=== PATIENT | female | born 1945 | race Caucasian/White ===

== ENCOUNTER 2017-01-13 01:27 | Inpatient (IN) | payer MEDICARE, OTHER ==
[~2017-01-13] VITALS: Ht 160 cm; Wt 72.6 kg
[2017-01-13 01:45] VITALS: BP 134/71
[2017-01-13] MEDS ORDERED: MAGNESIUM HYDROXIDE 30 ML UDC PO PRN (02:00)
[2017-01-13] MEDS ORDERED: MAG HYDROX/AL HYDROX/SIMETH 30 ML UDC PO PRN (02:00)
[2017-01-13] MEDS ORDERED: DIPH-530 PO (02:29)
[2017-01-13] MEDS ORDERED: AMLO2.5T PO (02:29)
[2017-01-13] MEDS ORDERED: TIMO5DRO4 EACHEYE (02:29)
[2017-01-13] MEDS ORDERED: ESCI20TA PO (02:29)
[2017-01-13] MEDS ORDERED: MORP15TA PO (02:29)
[2017-01-13] MEDS ORDERED: TAPE50TA5 PO (02:29)
[2017-01-13] MEDS ORDERED: LUBI8CAP PO (02:29)
[2017-01-13] MEDS ORDERED: PRAV20TA4 PO (02:29)
--- NOTE | 2017-01-13 05:24 | NUR ---
GPS/RN NOTE: ADMITTED DIRECTLY FROM [facility]. PATIENT ADMITTED ON 5150 FOR DTS. CAME TO THE UNIT AROUND 0145 WITH 2 MALE EMT STAFF. UPON FACE TO FACE PATIENT STATED THAT SHE WAS SUICIDAL WITH PLAN TO OVERDOSE WITH MEDICATIONS. PATIENT IS AWAKE, ALERT, ORIENTED X3, DEPRESSED, CALM, RESPIRATION EVEN, BREATHING PATTERN NON-LABORED, SHOWS NO S/S OF ANY RESPIRATORY DISTRESS OR PAIN. SKIN IS INTACT. PATIENT IS AMBULATORY, SELF CARE. PATIENT IS UNDER THE CARE OF DR. ROA AND UNDER THE MEDICAL CARE OF DR. DUQUE. BELONGINGS WERE INVENTORIED AND CHECKED FOR CONTRABAND, VALUABLES PUT IN TO SAFE. DR. DUQUE CAME TO THE UNIT LAST NIGHT, PREFERS TO DO THE MED RECON IN THE MORNING. MRSA SCREEN DONE. BED LOCKED AND PLACED ON LOWEST POSITION. WILL CONTINUE TO MONITOR Q 15 MINS. TO MAINTAIN SAFETY. 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
[2017-01-13 08:00] VITALS: BP 135/67
[2017-01-13] MEDS: LORAZEPAM 0.5 MG TABLET PO PRN ×2 (11:17→17:28)
[2017-01-13] MEDS: ACETAMINOPHEN 325 MG TABLET PO PRN ×2 (11:17→16:53)
--- NOTE | 2017-01-13 11:20 | NUR ---
GPS RN: PATIENT IS IN BED, APPEARS DEPRESSED, C/O ANXIETY AND ASKING FOR A MEDICATION TO HELP HER CALM DOWN. ALSO C/O LOWER BACK PAIN 01/11. ATIVAN 0.5MG AND TYLENOL 650MG ADMINISTERED PO ORDERED FOR ANXIETY AND PAIN RESPECTIVELY. VS STABLE. CALM AND SAFE ENVIRONMENT PROVIDED, ENCOURAGED TO VERBALIZE FEELINGS. CONTINUE TO MONITOR THE PATIENT.
[2017-01-13] MEDS: VENLAFAXINE XR 75 MG CAP.SR.24H PO SCH (13:41)
--- NOTE | 2017-01-13 15:00 | NUR ---
GPS RN: DR. OSEI NOTIFIED OVER THE PHONE AND IN PERSON TO RECONCILE PATIENT'S MEDICATIONS.
[2017-01-13 16:00] VITALS: BP 139/79
--- NOTE | 2017-01-13 16:54 | NUR ---
GPS RN: PATIENT C/O LOWER BACK PAIN 01/11, ASKING FOR TYLENOL. ADMINISTERED TYLENOL 650MG PO ORDERED. CONTINUE TO MONITOR.
[2017-01-13 20:00] VITALS: BP 152/74
[2017-01-13] MEDS: MORPHINE SULFATE IR 15 MG TABLET PO SCH (20:49)
--- NOTE | 2017-01-13 20:55 | NUR ---
GPS RN: PATIENT C/O LOWER BACK PAIN 02/11, ASKING FOR MSIR TAB. ADMINISTERED MSIR15 MG. WILL CONTINUE TO MONITOR.
[2017-01-13] MEDS: MIRTAZAPINE 15 MG TABLET PO SCH (21:17)
[2017-01-13] MEDS: ATORVASTATIN 10 MG TABLET PO SCH (21:17)
[2017-01-13] MEDS ORDERED: PRAVASTATIN SODIUM 20 MG TABLET PO SCH (22:00)
[2017-01-13] MEDS: TEMAZEPAM 7.5 MG CAPSULE PO PRN (22:18)
--- NOTE | 2017-01-14 06:12 | NUR ---
RN GPS NOTES PATIENT RESTING HER BED,EASILY GETS AGITED , NO ACUTE DISTRESS NOTED ,NO CHANGES IN STATUS. ALL NEEDS ATTENDED TO. WILL ENDORSE TO NEXT SHIFT FOR CONTINUITY CARE.
[2017-01-14 07:00] LABS: BASOPHILS % (AUTO) 0.6 % (0.0-2.0); EOSINOPHILS # (AUTO) 0.1 /CMM (0.0-0.7); HEMATOCRIT 42 % (33-45); HEMOGLOBIN 13.7 g/dL (11.5-14.8); LYMPHOCYTES # (AUTO) 2.2 /CMM (0.8-4.8); LYMPHOCYTES % (AUTO) 42.1 % (20.0-44.0); MEAN CORPUSCULAR HEMOGLOBIN 29 PG (26.0-33.0); MEAN CORPUSCULAR HGB CONC 33 g/dl (31.0-36.0); MEAN CORPUSCULAR VOLUME 87 fL (82-100); MONOCYTES # (AUTO) 0.5 /CMM (0.1-1.30); MONOCYTES % (AUTO) 8.7 % (2.0-12.0); NEUTROPHILS # (AUTO) 2.5 /CMM (1.8-8.9); NEUTROPHILS % (AUTO) 47.6 % (43.0-81.0); PLATELET COUNT (AUTO) 217 /CMM (150-450); RDW COEFFICIENT OF VARIATION 14.9 (11.5-15.0); WHITE BLOOD COUNT (AUTO) 5.3 K/uL (4.3-11.0)
[2017-01-14 07:05] LABS: ALBUMIN 3.8 g/dL (3.4-5.0); BILIRUBIN,TOTAL 0.8 mg/dL (0.2-1.0); CALCIUM, SERUM 8.9 mg/dL (8.5-10.1); CREATININE 1.1 mg/dL (0.6-1.3); POTASSIUM 3.3 mmol/L (3.5-5.1)
[2017-01-14 07:26] LABS: THYROID STIMULATING HORMONE 1.739 uIU/mL (0.358-3.74)
[2017-01-14 08:00] VITALS: BP 119/63
[2017-01-14] MEDS: AMLODIPINE BESYLATE 2.5 MG TABLET PO SCH (08:25)
[2017-01-14] MEDS: TIMOLOL 0.5% SOLN OPHTH 5 ML BOTTLE EACHEYE SCH (08:25)
[2017-01-14] MEDS: VENLAFAXINE XR 75 MG CAP.SR.24H PO SCH (08:25)
[2017-01-14] MEDS: LORAZEPAM 0.5 MG TABLET PO PRN ×2 (08:32→14:32)
[2017-01-14] MEDS: MORPHINE SULFATE IR 15 MG TABLET PO SCH ×2 (10:12→18:51)
[2017-01-14] MEDS: ACETAMINOPHEN 325 MG TABLET PO PRN (11:03)
[2017-01-14 16:00] VITALS: BP 101/56
[2017-01-14 20:07] VITALS: BP 120/67
[2017-01-14] MEDS: MIRTAZAPINE 15 MG TABLET PO SCH (21:46)
[2017-01-14] MEDS: ATORVASTATIN 10 MG TABLET PO SCH (21:46)
[2017-01-14] MEDS: TEMAZEPAM 7.5 MG CAPSULE PO PRN (21:47)
[2017-01-15] MEDS: LORAZEPAM 0.5 MG TABLET PO PRN ×2 (05:22→12:33)
--- NOTE | 2017-01-15 05:26 | NUR ---
GPS/RN NOTE: PATIENT REQUESTED FOR ATIVAN, PT. STATUS FEELING ANXIOUS , 0.5 MG TAB 1 PO GIVEN.
--- NOTE | 2017-01-15 06:28 | NUR ---
RN GPS NOTES PATIENT RESTING HER BED,EASILY GETS AGITED , NO ACUTE DISTRESS NOTED ,NO CHANGES IN STATUS. ALL NEEDS ATTENDED ANTICIPATED . WILL ENDORSE TO NEXT SHIFT FOR CONTINUITY CARE
[2017-01-15 08:00] VITALS: BP 102/60
[2017-01-15] MEDS: AMLODIPINE BESYLATE 2.5 MG TABLET PO SCH (08:48)
[2017-01-15] MEDS: TIMOLOL 0.5% SOLN OPHTH 5 ML BOTTLE EACHEYE SCH (08:48)
[2017-01-15] MEDS: MORPHINE SULFATE IR 15 MG TABLET PO SCH ×2 (09:32→16:47)
[2017-01-15] MEDS: VENLAFAXINE XR 75 MG CAP.SR.24H PO SCH (09:32)
--- NOTE | 2017-01-15 12:33 | NUR ---
GPS/RN PATIENT ANXIOUS, RESTLESS, REQUESTING ATIVAN, ADMINISTERED ATIVAN PO ORDERED, WILL CONTINUE TO MONITOR.
--- NOTE | 2017-01-15 15:22 | NUR ---
Initial Discharge Note: Per patient, she rents a room and lives alone [address] [place] [address]. ([phone]). Patient would like to return home upon discharge. bridge worker apprentice attempted to contact patients bladder trimmer ([phone]). However, she was unavailable. bridge worker apprentice left her a voicemail with her contact information. bridge worker apprentice will help form a safe and proper discharge.
[2017-01-15 16:00] VITALS: BP 126/69
--- NOTE | 2017-01-15 16:03 | NUR ---
vegetable ii farmworker followed-up with Luis from intake regarding the contact information for the UR patient case manager for the patient. Luis stated that she has been attempting to get a hotel yardperson and will inform composite worker as soon as she obtains the information. vegetable ii farmworker will follow-up with Luis tomorrow.
[2017-01-15] MEDS: ACETAMINOPHEN 325 MG TABLET PO PRN (17:05)
--- NOTE | 2017-01-15 18:22 | NUR ---
GPS/RN DR OSEI AWARE OF K- 3.3, NO NEW ORDERS AT THIS TIME
[2017-01-15 20:03] VITALS: BP 101/61
[2017-01-15] MEDS: TEMAZEPAM 7.5 MG CAPSULE PO PRN (21:36)
[2017-01-15] MEDS: MIRTAZAPINE 15 MG TABLET PO SCH (21:36)
[2017-01-15] MEDS: ATORVASTATIN 10 MG TABLET PO SCH (22:06)
[2017-01-16] MEDS ORDERED: POTASSIUM CHLORIDE 20 MEQ TAB.PRT.SR PO ONE ×2 (00:46)
[2017-01-16] MEDS: LORAZEPAM 0.5 MG TABLET PO PRN ×2 (01:10→14:00)
--- NOTE | 2017-01-16 01:15 | NUR ---
RN GPS NOTES DR. OSEI ORDER POTASSIUM CHLORIDE 40 MEQ PO X ONCE , NEW ORDER NOTED AND CARRIED OUT
--- NOTE | 2017-01-16 01:31 | NUR ---
GPS/RN PATIENT ANXIOUS, RESTLESS, REQUESTING ATIVAN, ADMINISTERED ATIVAN 0.5 MG PO PRN, WILL CONTINUE TO MONITOR.
--- NOTE | 2017-01-16 06:38 | NUR ---
RN GPS NOTES PATIENT RESTING HER BED, DENIES SI /HI , NO ACUTE DISTRESS NOTED ,NO CHANGES IN STATUS. ALL NEEDS ATTENDED ANTICIPATED . WILL ENDORSE TO NEXT SHIFT FOR CONTINUITY CARE
[2017-01-16 08:27] VITALS: BP 106/73
[2017-01-16] MEDS: VENLAFAXINE XR 75 MG CAP.SR.24H PO SCH (08:50)
[2017-01-16] MEDS: AMLODIPINE BESYLATE 2.5 MG TABLET PO SCH (08:51)
[2017-01-16] MEDS: TIMOLOL 0.5% SOLN OPHTH 5 ML BOTTLE EACHEYE SCH (08:53)
[2017-01-16] MEDS: ACETAMINOPHEN 325 MG TABLET PO PRN ×2 (11:39→22:19)
--- NOTE | 2017-01-16 12:12 | NUR ---
UR update: composition siding worker spoke to Aury from [employer] and provided a clinical review. Aury stated that patient will be covered for four days January 13, 2017- January 16, 2017 with a concurrent review due tomorrow January 17, 2017. Review will be done with Deidra ([phone] ext. [phone]) Authorization #: [id number]
[2017-01-16] MEDS: QUETIAPINE FUMARATE 25 MG TABLET PO SCH ×2 (14:00→16:24)
--- NOTE | 2017-01-16 14:00 | NUR ---
GPS/RN PATIENT ANXIOUS, RESTLESS,CRYING, REQUESTING ATIVAN, ADMINISTERED ATIVAN PO ORDERED, WILL CONTINUE TO MONITOR
[2017-01-16 16:08] VITALS: BP 109/51
[2017-01-16] MEDS: MORPHINE SULFATE IR 15 MG TABLET PO SCH (18:29)
--- NOTE | 2017-01-16 18:29 | NUR ---
GPS/RN PATIENT REPORTS 8/10 GENERALIZED PAIN, REQUESTING MORPHINE, ADMINISTERED MORPHINE PO ORDERED, WILL CONTINUE TO MONITOR.
[2017-01-16 20:07] VITALS: BP 116/69
[2017-01-16] MEDS: ATORVASTATIN 10 MG TABLET PO SCH (21:27)
[2017-01-16] MEDS: TEMAZEPAM 7.5 MG CAPSULE PO PRN (21:28)
[2017-01-16] MEDS: MIRTAZAPINE 15 MG TABLET PO SCH (21:28)
--- NOTE | 2017-01-16 22:20 | NUR ---
GPS RN NOTES: PATIENT REQUESTED FOR PAIN MEDICATION- SHE HAD MORPHINE MEDICATION GIVEN BY THE DAY SHIFT NURSE. OFFERED TO PATIENT HER TYLENOL MEDICATION PRN. GELY RANKIN PULLED OUT THE TYLENOL MEDICATION FROM [facility], AND WAS ABOUT TO GIVE THE MEDICATION TO THE PATIENT WHEN THE FIRST PILL ACCIDENTALLY FELL TO THE GROUND. GELY BOGGS PULLED ANOTHER TYLENOL FROM [facility] BUT ONLY ONE PILL IT IS THE ONLY NEED DURING THIS TIME. TYLENOL 650 MG GIVEN ORALLY TO PATIENT. WILL CONTINUE TO MONITOR PATIENT'S PAIN STATUS. WILL ENDORSE TO DAY SHIFT NURSE.
[2017-01-17 08:12] VITALS: BP 118/65
[2017-01-17] MEDS: QUETIAPINE FUMARATE 25 MG TABLET PO SCH ×3 (08:38→16:44)
[2017-01-17] MEDS: VENLAFAXINE XR 75 MG CAP.SR.24H PO SCH (08:39)
[2017-01-17] MEDS: AMLODIPINE BESYLATE 2.5 MG TABLET PO SCH (08:39)
[2017-01-17] MEDS: TIMOLOL 0.5% SOLN OPHTH 5 ML BOTTLE EACHEYE SCH (08:45)
[2017-01-17] MEDS: MORPHINE SULFATE IR 15 MG TABLET PO SCH ×2 (08:56→16:44)
--- NOTE | 2017-01-17 08:58 | NUR ---
GPS/RN PATIENT REPORTS 8/10 GENERALIZED PAIN, REQUESTING MORPHINE, ADMINISTERED MORPHINE PO ORDERED, WILL CONTINUE TO MONITOR.
--- NOTE | 2017-01-17 11:54 | NUR ---
Ur update: supervisor machine workers left updated clinical review (voicemail) with Deidra ([phone] ext. [phone]) from [facility]. Authorization #: [id number]. supervisor machine workers will follow-up.
[2017-01-17] MEDS: ACETAMINOPHEN 325 MG TABLET PO PRN (12:01)
--- NOTE | 2017-01-17 12:05 | NUR ---
GPS RN NOTE: DR ROA ORDER PHYSICIAN PAIN CONSULT WITH DR NICO THOMAS, ORDER PLACED AND CARED OUT
[2017-01-17] MEDS: LORAZEPAM 0.5 MG TABLET PO PRN (13:23)
--- NOTE | 2017-01-17 13:23 | NUR ---
GPS RN NOTE: PATIENT COMPLAINING OF ANXIETY ATIVAN 0.5 MG PO PRN GIVEN PER ORDER WILL CONTINUE MONITORING FOR SAFETY AND BEHAVIOR Q 15 MIN
[2017-01-17 16:21] VITALS: BP 135/73
--- NOTE | 2017-01-17 19:31 | NUR ---
GPS RN NOTE, RECEIVED PATIENT AWAKE AND IN BED, PATIENT HAS A 6 OUT 10 PAIN IN HER RIGHT LEG. PATIENT IS BEING TREATED WITH ORAL PAIN MEDICATION FOR THIS PAIN. PATIENT IS DISPLAYING NO S/S OF APPARENT DISTRESS AT THIS TIME. PATIENT BREATHING IS UNLABORED WITH EQUAL RISE AND FALL OF THE CHEST. PATIENT IS ALERT AND ORIENTED X 2-3 ON ROOM AIR WITH A SPO2 96%. PATIENT COMPLAINT WITH MEDICATION, ANXIOUS, COOPERATIVE, GUARDED, SUSPICIOUS, AND NEEDS REORIENTATION. PATIENT DENIES SUICIDE AND HOMICIDAL IDEATIONS AT THIS TIME. PATIENT ASSISTED WITH TURNING AND REPOSITIONING Q2HR AND PRN FOR COMFORT AND CIRCULATION. PATIENT HAS NO NEEDS AT THIS TIME. PATIENT EDUCATED ON THE USE OF THE CALL TRINH. PATIENT BED SIDE RAILS UP X2 FOR SAFETY, BED IS LOCKED AND LOW WILL CONTINUE TO MONITOR AND MAINTAIN SAFETY.
[2017-01-17 20:06] VITALS: BP 125/77
[2017-01-17] MEDS: TEMAZEPAM 7.5 MG CAPSULE PO PRN (21:04)
--- NOTE | 2017-01-17 21:04 | NUR ---
GPS RN NOTE, GPS RN NOTE PATIENT HAS A COMPLAINT OF NOT BEING ABLE TO SLEEP AND WOULD LIKE A SLEEPING AID AT THIS TIME. PATIENT VITAL SIGNS ARE STABLE. GAVE RESTORIL 7.5MG PO HS ORDERED. WILL REASSESS FOR INSOMNIA AND I WILL CONTINUE TO MONITOR THIS PATIENT.
[2017-01-17] MEDS: ATORVASTATIN 10 MG TABLET PO SCH (21:05)
[2017-01-17] MEDS: MIRTAZAPINE 15 MG TABLET PO SCH (21:05)
[2017-01-18] MEDS: LORAZEPAM 0.5 MG TABLET PO PRN ×2 (01:16→21:09)
--- NOTE | 2017-01-18 01:16 | NUR ---
GPS RN NOTE, PATIENT HAS A COMPLAINT OF FEELING ANXIOUS AND WOULD LIKE MEDICATION TO CALM HER DOWN. PATIENT VITAL SIGNS ARE STABLE. GAVE ATIVAN 0.5MG PO Q6HR PRN ORDERED. WILL REASSESS FOR ANXIETY AND I WILL CONTINUE TO MONITOR THIS PATIENT.
[2017-01-18 07:38] LABS: BASOPHILS % (AUTO) 0.7 % (0.0-2.0); EOSINOPHILS # (AUTO) 0.1 /CMM (0.0-0.7); EOSINOPHILS % (AUTO) 2.2 % (0.0-6.0); HEMATOCRIT 39 % (33-45); HEMOGLOBIN 12.9 g/dL (11.5-14.8); LYMPHOCYTES # (AUTO) 2.3 /CMM (0.8-4.8); LYMPHOCYTES % (AUTO) 44.4 % (20.0-44.0); MEAN CORPUSCULAR HEMOGLOBIN 29 PG (26.0-33.0); MEAN CORPUSCULAR HGB CONC 33 g/dl (31.0-36.0); MEAN CORPUSCULAR VOLUME 87 fL (82-100); MONOCYTES # (AUTO) 0.5 /CMM (0.1-1.30); MONOCYTES % (AUTO) 8.7 % (2.0-12.0); NEUTROPHILS # (AUTO) 2.3 /CMM (1.8-8.9); PLATELET COUNT (AUTO) 180 /CMM (150-450); RDW COEFFICIENT OF VARIATION 15.7 (11.5-15.0); RED BLOOD CELL COUNT(AUTO) 4.48 MIL/uL (4.0-5.2); WHITE BLOOD COUNT (AUTO) 5.3 K/uL (4.3-11.0)
[2017-01-18 08:00] VITALS: BP 105/62
[2017-01-18 08:17] LABS: CALCIUM, SERUM 8.5 mg/dL (8.5-10.1); CREATININE 1.1 mg/dL (0.6-1.3); MAGNESIUM 2.1 mg/dL (1.8-2.4); PHOSPHORUS 3.9 mg/dL (2.5-4.9); POTASSIUM 3.5 mmol/L (3.5-5.1)
[2017-01-18] MEDS: AMLODIPINE BESYLATE 2.5 MG TABLET PO SCH (09:00)
[2017-01-18] MEDS: QUETIAPINE FUMARATE 25 MG TABLET PO SCH ×3 (09:27→17:02)
[2017-01-18] MEDS: VENLAFAXINE XR 75 MG CAP.SR.24H PO SCH (09:27)
[2017-01-18] MEDS: TIMOLOL 0.5% SOLN OPHTH 5 ML BOTTLE EACHEYE SCH (09:27)
[2017-01-18] MEDS: MORPHINE SULFATE IR 15 MG TABLET PO SCH ×3 (09:29→17:03)
[2017-01-18 16:02] VITALS: BP 108/62
[2017-01-18] MEDS ORDERED: ONDANSETRON HCL/PF 4 MG/2 ML VIAL ONE (19:18)
[2017-01-18] MEDS ORDERED: MORPHINE SULFATE INJ 4 MG/ML DISP.SYRIN ONE (19:19)
[2017-01-18] MEDS: TEMAZEPAM 7.5 MG CAPSULE PO PRN (20:43)
--- NOTE | 2017-01-18 20:43 | NUR ---
GPS/RN NOTE: PATIENT REQUESTED FOR SLEEPING PILL, STATED THAT SHE NEEDS ONE FOR TONIGHT. TEMAZEPAM 7.5 MG CAP PO GIVEN.
--- NOTE | 2017-01-18 21:12 | NUR ---
GPS/RN NOTE: FEELING ANXIOUS, NOT ABLE TO SLEEP. LORAZEPAM 0.5 MG TAB PO GIVEN.
[2017-01-18] MEDS: ATORVASTATIN 10 MG TABLET PO SCH (21:18)
[2017-01-18] MEDS: MIRTAZAPINE 15 MG TABLET PO SCH (21:18)
[2017-01-19 02:15] VITALS: BP 100/56
[2017-01-19 08:00] VITALS: BP 116/65
[2017-01-19] MEDS: VENLAFAXINE XR 75 MG CAP.SR.24H PO SCH (08:57)
[2017-01-19] MEDS: QUETIAPINE FUMARATE 25 MG TABLET PO SCH ×3 (08:58→16:35)
[2017-01-19] MEDS: MORPHINE SULFATE IR 15 MG TABLET PO SCH ×3 (08:59→16:37)
[2017-01-19] MEDS: AMLODIPINE BESYLATE 2.5 MG TABLET PO SCH (08:59)
[2017-01-19] MEDS: TIMOLOL 0.5% SOLN OPHTH 5 ML BOTTLE EACHEYE SCH (09:02)
--- NOTE | 2017-01-19 11:40 | NUR ---
Ur update: washtub worker helper left updated clinical review (voicemail) with Deidra ([phone] ext. [phone]) from [facility]. Authorization #: [id number]. washtub worker helper will follow-up.
--- NOTE | 2017-01-19 15:06 | NUR ---
PT. WITH PC HEARING WITH THE HEARING REFEREE, ADVOCATE AND HOSPITAL STAFF. THE PT. AFTER TALKING WITH THE ADVOCATE, HAS DECIDED TO BE PRESENT AT THE CERTIFICATION REVIEW HEARING. AFTER CONSIDERING ALL THE EVIDENCE PRESENTED, THE HEARING REFEREE FINDS THAT: THERE IS NOT PROBABLE CAUSE TO BELIEVE THAT THE PERSON, A RESULT OF A MENTAL DISORDER IS DANGER TO SELF, DANGER TO OTHERS OR GRAVELY DISABLED. THE PT. MUST BE RELEASED OR REMAIN AT THE FACILITY ON A VOLUNTARY BASIS. PT. SIGNED VOLUNTARY AND DR. ROA MADE AWARE AND CHANGED THE STATUS TO VOLUNTARY.
[2017-01-19 15:59] VITALS: BP 125/77
--- NOTE | 2017-01-19 16:40 | NUR ---
Discharge Not: Patient will be discharged to [address] [place] [address] ([phone]). Via [employer]. Patient does not have any family to notify and patient did not want to notify anyone. Patient denied suicidal and homicidal ideations. Patient is agreeable with the discharge plan. Patient agreed to follow-up with psychiatrist Dr. Coffey as soon as she gets home. Patient was also referred to [facility] ([phone]). night worker informed Deidra from [employer] that patient will need a follow-up appointment with a psychiatrist and asked Deidra to follow-up with patient. Facilitated info to IDT team who are in agreement with discharge arrangement. The multidisciplinary exitcare form was done, printed, signed, and given to the patient.
[2017-01-19 20:00] VITALS: BP 98/55
[2017-01-19 20:50] VITALS: BP 110/65
[2017-01-19] MEDS: ATORVASTATIN 10 MG TABLET PO SCH (21:18)
[2017-01-19] MEDS: MIRTAZAPINE 15 MG TABLET PO SCH (21:19)
[2017-01-19] MEDS: TEMAZEPAM 7.5 MG CAPSULE PO PRN (21:56)
[2017-01-19] MEDS: LORAZEPAM 0.5 MG TABLET PO PRN (23:35)
--- NOTE | 2017-01-19 23:35 | NUR ---
GPS/RN NOTE: PT. C/O FEELING ANXIOUS LORAZEPAM 0.5 MG TAB PO PRN GIVEN. PER PT. REQUEST
--- NOTE | 2017-01-20 06:24 | NUR ---
RN GPS NOTES PATIENT RESTING HER BED, DENIES SI/HI AT THIS TIME , NO ACUTE DISTRESS NOTED ,NO CHANGES IN STATUS. ALL NEEDS ATTENDED ANTICIPATED . WILL ENDORSE TO NEXT SHIFT FOR CONTINUITY CARE
[2017-01-20 08:00] VITALS: BP 111/68
--- NOTE | 2017-01-20 08:25 | NUR ---
DR. ROA GAVE AN ORDER TO D/C PT. TO HOME TODAY. PT. WITHOUT DISTRESS, DENIES SUICIDAL AND HOMICIDAL AND TO FOLLOW UP WITH PSYCH AND MEDICAL DOCTORS.
[2017-01-20 08:35] VITALS: BP 111/68
[2017-01-20] MEDS: VENLAFAXINE XR 75 MG CAP.SR.24H PO SCH (08:35)
[2017-01-20] MEDS: QUETIAPINE FUMARATE 25 MG TABLET PO SCH (08:35)
[2017-01-20] MEDS: AMLODIPINE BESYLATE 2.5 MG TABLET PO SCH (08:35)
[2017-01-20] MEDS: MORPHINE SULFATE IR 15 MG TABLET PO SCH (08:36)
[2017-01-20] MEDS: TIMOLOL 0.5% SOLN OPHTH 5 ML BOTTLE EACHEYE SCH (08:39)
--- NOTE | 2017-01-20 11:10 | NUR ---
PARACHUTE HARNESS RIGGER-NOTES PATIENT DISCHARGE TO HOME TODAY. DR. ROA AND DISTRICT SALES LEADER MALACHI AWARE AND AGREES OF PATIENT DISCHARGE. ALL DISCHARGE MEDICATIONS WAS REVIEWED WITH PATIENT WITH UNDERSTANDING. RX WAS GIVEN TO THE PATIENT. PATIENT DID NOT VERBALIZE SI/HI ,DENIES VISUAL/AUDITORY HALLUCINATIONS AT THE TIME OF DISCHARGE. PATIENT WAS INDUSTRIAL INSULATOR BY SRIDHAR Perea [employer] DIRECTOR OF NURSES REGISTRY) VIA PRIVATE CAR.PATIENT LEFT THE UNIT IN STABLE CONDITION, AMBULATORY WITH ALL HER BELONGINGS INCLUDING GUEVARA MONEY OF 158 DOLLARS, WHEELCHAIR ,CELLPHONE AND SOME CLOTHES.
--- NOTE | 2017-01-22 15:42 | NUR ---
Ur update: weigh and charge worker left discharge Summary (voicemail) with Deidra ([phone] ext. [phone]) from [facility]. Authorization #: [id number].
== END 2017-01-20 11:10 | disposition home or self-care (01) | DRG 885 ==
LOC: GPS 01:27
PROVIDERS: ADMIT Psychiatry & Neurology Psychosomatic Medicine; ATTEND Family Medicine
DX: F33.3 Major depressive disorder, recurrent, severe with psychotic symptoms (principal); R45.851 Suicidal ideations; I10 Essential (primary) hypertension; E78.5 Hyperlipidemia, unspecified; E87.6 Hypokalemia; K21.9 Gastro-esophageal reflux disease without esophagitis; G89.4 Chronic pain syndrome; M54.5 Low back pain
CPT/HCPCS: 36415; 80048-TC; 80053-TC; 82746; 83540-TC; 83735-TC; 84100-TC; 84300-TC; 84443-TC; 85025-TC; 87081-TC; J2270; J2405; Z7610